=== PATIENT | female | born 2000 | race Caucasian/White ===

== ENCOUNTER 2020-11-23 12:05 | Emergency (ER) | payer BC, MEDICAID, SELFPAY ==
[2020-11-23] VITALS (9 sets, daily range): BP systolic 92–108; BP diastolic 54–76; PULSE 69–104; RESP 17–18; TEMP 36–37; O2SAT 96–99; BMI 18.1
--- NOTE | 2020-11-23 12:49 | ED_ITS ---
HPI - Female Genitourinary General: Chief complaint: Urogenital-Female Stated complaint: lower abd pain and lower back pain 21 wks preg Time Seen by Provider: 11/23/20 12:36 Source: patient Mode of arrival: ambulatory Limitations: no limitations History of Present Illness: HPI Narrative: Right flank pain of 3 days duration. Radiates into the suprapubic region. Associated dysuria and frequency. No hematuria. No fever. She states that she has a history of urinary tract infections and she thinks she has 1 again. She has associated nausea and vomiting and has vomited about 3 times today. She is here to be evaluated for the above. MD elicited complaint: dysuria and UTI Pertinent past history: recurrent UTIs and pyelonephritis Onset (ago): day(s) (3) Severity: moderate Quality of pain: cramping Consistency: constant Vaginal discharge: none Vaginal bleeding: none Urinary symptoms: Dysuria, Flank Pain and Frequency Exacerbating factors: urination Relieving factors: none Associated symptoms: Reports abdominal pain and nausea; Deny short of breath, fevers/chills, headache(s), rash, seizures, syncope, vaginal bleeding, vaginal discharge or weakness Treatment prior to arrival: none Patient : Yes Date of Last Menstrual Period: 06/27/20 Review of Systems General: Reports: 10 or more systems reviewed and unremarkable except in HPI and below Card: Denies: syncope GI: Reports: abdominal pain and nausea : Denies: vaginal discharge Neuro: Denies: headache(s) [facility] ED Female Reproductive History: Date of last menstrual period: 06/27/20 Physical Exam Const: COMMON NORMALS: no acute distress, average body habitus, patient oriented x3, no limitations, healthy appearing, alert and well nourished HENMT: COMMON NORMALS: normocephalic, atraumatic and moist oral mucous membranes HEAD & SCALP: normocephalic and atraumatic Eye: COMMON NORMALS: Equal, round and reactive pupils present, EOMs intact bilaterally, conjunctivae normal and no scleral icterus CONJUNCTIVA: Yes conjunctivae normal PUPIL: Yes Equal, round and reactive pupils present Neck/C-Spine: COMMON NORMALS: no meningeal signs and no JVD Resp: COMMON NORMALS: normal respiratory effort, No retractions, No use of accessory muscles, clear to auscultation bilaterally and percussion normal AUSCULTATION: clear to auscultation bilaterally PERCUSSION: percussion normal Cardio: COMMON NORMALS: no JVD, regular rate, regular rhythm, S1 normal heart sound present, S2 normal heart sound present, No gallops present (Cardio), No clicks present (Cardio), No murmurs present (Cardio), No rub (Cardio) and Peripheral pulses 2+ throughout RATE: regular rate RHYTHM: regular rhythm HEART SOUNDS: S1 normal heart sound present and S2 normal heart sound present PERIPHERAL PULSES: Peripheral pulses 2+ throughout GI: COMMON NORMALS: Normal to inspection, nondistended, normoactive bowel sounds present, Soft to palpation, non-tender, No hepatosplenomegaly present, no masses and no bruits PALPATION: Yes Soft to palpation and Yes No hepatosplenomegaly present : BLADDER/KIDNEY EXAM: Yes CVA tenderness SPECULUM EXAM - VAGINA: No vaginal bleeding OB/EXTERNAL & SPECULUM: No vaginal bleeding Back/Pelvis: GENERAL BACK: Yes CVA tenderness CVA tenderness: right Extremity: COMMON NORMALS: normal to inspection, full ROM, capillary refill normal, no calf tenderness and no pedal edema Neuro: COMMON NORMALS: patient oriented x3 SENSORIUM/ORIENTATION: Yes alert MENINGEAL SIGNS: Yes no meningeal signs Skin: COMMON NORMALS: no rashes or lesions noted, no wounds, turgor normal, no jaundice, no petechiae and no mottling GENERAL SKIN EXAM: no rashes or lesions noted and turgor normal Course ED course: 1550: pain is much improved. She is ready to be discharged home. Discussed her lab and imaging findings with her. No UTI, she has hydronephrosis which is suggestive of urolithiasis on the right. We will discharge her home with a prescription for pain medication. She voiced understanding and is in agreement with the plan. Vital Signs: Vital signs: Vital Signs Temperature 98.6 F 11/23/20 16:09 Pulse Rate 74 11/23/20 16:09 Respiratory Rate 18 11/23/20 16:09 Blood Pressure 97/54 11/23/20 16:09 Pulse Oximetry 96 11/23/20 16:09 MDM - Female MDM Narrative: Medical decision making narrative: 20-year-old female patient who is about 21 weeks and who presents to the emergency department with right flank pain. She does have a history of recurrent UTIs and pyelonephritis states and thinks she may have one. However urinary analysis was negative for UTI. Ultrasound of her renal system shows right hydronephrosis, no left hydronephrosis. She will be managed therefore as a case of a kidney stone with pain medication and she will be referred to the urologist for further evaluation and management. Medical Records: Attestation: I reviewed the patient's medical records. Lab Data: Attestation: I reviewed the patient's lab results. Labs: Lab Results 11/23/20 11/23/20 11/23/20 Range/Units 13:05 13:05 13:05 WBC 7.8 (4.5-13.0) 10^3/ uL RBC 3.48 L (4.1-5.3) 10^6/u L Hgb 10.6 L (11.5-15.3) g/dL Hct 31.0 L (37.0-47.0) % MCV 89.1 (81-99) fL MCH 30.5 (28.0-34.0) pg MCHC 34.2 (30.0-36.0) g/dL RDW 12.4 (12.1-15.1) % Plt Count 233 (130-400) 10^3/c mm MPV 11.1 H (7.4-10.4) fL Neut % (Auto) 75.4 % Lymph % (Auto) 16.1 % Ware % (Auto) 6.1 % Eos % (Auto) 1.4 % Baso % (Auto) 0.6 % Neut # (Auto) 5.85 (1.8-8.0) 10^3/u L Lymph # (Auto) 1.3 L (1.5-6.5) 10^3/u L Ware # (Auto) 0.5 (0.2-0.9) 10^3/u L Eos # (Auto) 0.1 (0.0-0.8) 10^3/u L Baso # (Auto) 0.1 (0.0-0.1) 10^3/u L Nucleated RBC % (a uto) 0 % Nucleated RBCs # 0.0 /100WBC Sodium 137 (136-145) mmol/L Potassium 3.8 (3.5-5.1) mmol/L Chloride 105 (98-107) mmol/L Carbon Dioxide 21 L (22-29) mmol/L Anion Gap 14.8 (5-19) BUN 5 L (6-20) mg/dL Creatinine 0.4 L (0.5-0.9) mg/dL GFR Calculation 203.5 H (90-130) mL/min Glucose 109 (65-115) mg/dL Calculated Osmolal ity 282 L (285-295) mOsm/k g Calcium 8.4 L (8.5-10.5) mg/dL Total Bilirubin 0.2 (0.15-1.2) mg/dL AST 16 (0-32) U/L ALT 6 (0-33) U/L Alkaline Phosphata se 76 (35-105) IU/L C-Reactive Protein 0.3 (0.0-4.9) mg/L Total Protein 6.5 L (6.6-8.7) g/dL Albumin 3.7 (3.5-5.2) g/dL Globulin 2.8 (1.3-4.6) g/dL Urine Color Straw (Yellow) Urine Appearance Clear (CLEAR) Urine pH 5 (5-7) Ur Specific Gravit y 1.010 (1.005-1.030) Urine Protein Neg (Negative) Urine Glucose (UA) 1+ (Normal) Urine Ketones Negative (Negative) Urine Blood Neg (Negative) Urine Nitrate Negative (Negative) Urine Bilirubin Neg (Negative) Urine Urobilinogen Norm (Negative) mg/dL Ur Leukocyte Rose ase Negative (Negative) Imaging Data: US: Attestation: I personally reviewed and interpreted this imaging study as follows: Radiologist's impression: [address] [id number] ReportSigned Patient: Courtney Pedroza #: [id number]: [id number]#:[id number]/Sex: 20 / FADM Date: 11/23/20Loc: ERRoom/Bed:Attending Dr: Ordering Provider/Ordering MD: Hedy Tovar MD, [facility] [place] Date of Service: 11/23/20 Procedure(s): US renal BI* [id number] Accession Number(s): [id number] Report Number: [id number] PROCEDURE INFORMATION: Exam: US Retroperitoneal; Complete; Kidneys and Bladder Exam date and time: 11/23/2020 1:45 PM Age: 20 years old Clinical indication: Abdominal pain; Flank; Right; ; Additional info: Right flank pain TECHNIQUE: Imaging protocol: Real-time ultrasound of the retroperitoneum with image documentation. Complete exam focused on the kidneys and bladder. COMPARISON: US OB >= 14 weeks fetus [id number] 11/11/2020 9:58 AM FINDINGS: Right kidney: [id number] right hydronephrosis. Left kidney: Normal. No stones. No hydronephrosis. Aorta: Proximal abdominal aorta measures 1.5 cm. Mid abdominal aorta measures 1.4 cm. Distal abdominal aorta is not visualized. Urinary bladder: Left-sided urine jets visualized. Right-sided urine jet not visualized on these images. US/US renal BI* [id number] IMPRESSION: [id number] right hydronephrosis. Dictated By:Bailee Scott MDSigned By:Bailee Scott MDSigned Date/Time:11/23/20 1450DD/ 1449 Discharge Plan Discharge Patient Disposition: Home Clinical Impression: Acute right flank pain Hydronephrosis Qualifiers: Hydronephrosis type: unspecified Qualified Code(s): N13.30 - Unspecified hydronephrosis Condition: Stable Prescriptions: New hydrocodone-acetaminophen 5-325 mg tablet 1 tab PO Q8H PRN (Reason: pain) Qty: 12 RF: 0 Discharge Orders: Discharge ED (Routine); Ordered 11/23/20 Ordered By: Hedy Tovar Discharge Diet: Usual diet Discharge Activity: Increase activity as tolerated Patient Instructions: Kidney Stones (ED), Renal Colic (ED), Abdominal Pain (ED), Opioid Safety Activity Restrictions/Additional Instructions: Return for any new or worsening symptoms. Follow-up with your primary care provider within 3 days. You will be contacted by case management to schedule an appointment with urology. Take the pain medicine as needed for severe pain. Drink plenty of water to keep well-hydrated. Coding Level of Care Code ED Sales Trainee for Alessandra Lynch
--- NOTE | 2020-11-23 13:08 | PC.NURSE ---
Here for right sided flank pain.
[2020-11-23] MEDS: ondansetron 2 mg/ML SDV 2 mL 4 MG IVP (13:10)
[2020-11-23] MEDS: morphine 4 mg/mL SDV 1 mL IVP (13:10)
[2020-11-23 13:17] LABS: Add Urine Microscopic? NO; Charge for UA Resulting for Rev
[2020-11-23 13:18] LABS: Basophils # 0.1 10^3/uL (0.0-0.1); Basophils % 0.6 %; Eosinophils # 0.1 10^3/uL (0.0-0.8); Eosinophils % 1.4 %; Hemoglobin 10.6 g/dL (11.5-15.3); Lymphocytes # 1.3 10^3/uL (1.5-6.5); Lymphocytes % 16.1 %; Mean Corpuscular HGB Conc 34.2 g/dL (30.0-36.0); Mean Corpuscular Hemoglobin 30.5 pg (28.0-34.0); Mean Corpuscular Volume 89.1 fL (81-99); Mean Platelet Volume 11.1 fL (7.4-10.4); Monocytes # 0.5 10^3/uL (0.2-0.9); Monocytes % 6.1 %; Neutrophils # 5.85 10^3/uL (1.8-8.0); Neutrophils % 75.4 %; Nucleated Red Blood Cells % 0 %; Platelet Count 233 10^3/cmm (130-400); Red Blood Count 3.48 10^6/uL (4.1-5.3); Red Cell Distribution Width 12.4 % (12.1-15.1); White Blood Count 7.8 10^3/uL (4.5-13.0)
[2020-11-23 13:32] LABS: Bilirubin Urine Neg (Negative); Blood Urine Neg (Negative); Glucose Urine UA 1+ (Normal); Ketones Urine Negative (Negative); Leukocyte Esterase Urine Negative (Negative); Nitrate Urine Negative (Negative); Protein Urine Neg (Negative); Urine Appearance Clear (CLEAR); Urine Color Straw (Yellow); Urobilinogen Urine Norm (Negative); pH Urine 5 (5-7)
[2020-11-23 13:42] LABS: Alanine Aminotransferase 6 U/L (0-33); Albumin Level 3.7 g/dL (3.5-5.2); Alkaline Phosphatase 76 IU/L (35-105); Anion Gap 14.8 (5-19); Aspartate Amino Transferase 16 U/L (0-32); Blood Urea Nitrogen 5 mg/dL (6-20); C Reactive Protein 0.3 mg/L (0.0-4.9); Calcium 8.4 mg/dL (8.5-10.5); Carbon Dioxide 21 mmol/L (22-29); Chloride 105 mmol/L (98-107); Globulin 2.8 g/dL (1.3-4.6); Glomerular Filtration Rate 203.5 mL/min (90-130); Glucose 109 mg/dL (65-115); Osmolality Calculated 282 mOsm/kg (285-295); Potassium 3.8 mmol/L (3.5-5.1); Sodium 137 mmol/L (136-145); Total Bilirubin 0.2 mg/dL (0.15-1.2); Total Protein 6.5 g/dL (6.6-8.7)
--- NOTE | 2020-11-23 13:45 | USR_ITS ---
PROCEDURE INFORMATION: Exam: US Retroperitoneal; Complete; Kidneys and Bladder Exam date and time: 11/23/2020 1:45 PM Age: 20 years old Clinical indication: Abdominal pain; Flank; Right; ; Additional info: Right flank pain TECHNIQUE: Imaging protocol: Real-time ultrasound of the retroperitoneum with image documentation. Complete exam focused on the kidneys and bladder. COMPARISON: US OB >= 14 weeks fetus [id number] 11/11/2020 9:58 AM FINDINGS: Right kidney: [id number] right hydronephrosis. Left kidney: Normal. No stones. No hydronephrosis. Aorta: Proximal abdominal aorta measures 1.5 cm. Mid abdominal aorta measures 1.4 cm. Distal abdominal aorta is not visualized. Urinary bladder: Left-sided urine jets visualized. Right-sided urine jet not visualized on these images. US/US renal BI* [id number] IMPRESSION: [id number] right hydronephrosis.
[2020-11-23] MEDS: HYDROmorphone 1 mg/mL INJ 1 mL 0.5 MG IVP (15:22)
--- NOTE | 2020-11-25 08:17 | DCPLANNER ---
retail advertising sales manager had message to schedule a follow up appointment for patient with Dr. Mohan. retail advertising sales manager called the office of Dr. Mohan, spoke with Melanie. retail advertising sales manager gave clinic patients information. retail advertising sales manager was told that patients information would be printed and reviewed. Clinic will call patient with appointment information.
--- NOTE | 2020-12-13 07:19 | DCPLANNER ---
Patient had a follow up appointment scheduled for 12.05.[address] Mohan - patient did not attend appointment.
== END 2020-11-23 16:12 | disposition home or self-care (01) ==
PROVIDERS: Emergency Provider Family Medicine
DX: O99.891 Other specified diseases and conditions complicating pregnancy (principal); N13.30 Unspecified hydronephrosis; Z3A.21 21 weeks gestation of pregnancy
CPT/HCPCS: 76770; 80053; 81003; 85025; 86140; 96374; 96375; 99284; J1170; J2270; J2405

== ENCOUNTER 2021-04-06 03:10 | Inpatient (IN) | payer BC, MEDICAID, SELFPAY ==
[2021-04-06] VITALS (60 sets, daily range): BP systolic 107–168; BP diastolic 60–87; PULSE 53–140; RESP 16; TEMP 36.1–36.9; O2SAT 98–99; BMI 20.5
[2021-04-06] MEDS: lactated ringers 1,000 ML 999 ML IV (03:15)
[2021-04-06 03:20] LABS: Basophils % 0.4 %; Eosinophils # 0.1 10^3/uL (0.0-0.8); Eosinophils % 1.1 %; Hemoglobin 9.4 g/dL (11.5-15.3); Lymphocytes % 17.9 %; Mean Corpuscular HGB Conc 32.4 g/dL (30.0-36.0); Mean Corpuscular Hemoglobin 26.7 pg (28.0-34.0); Mean Corpuscular Volume 82.4 fl (81-99); Mean Platelet Volume 12.2 fL (7.4-10.4); Monocytes # 0.9 10^3/uL (0.2-0.9); Monocytes % 8.2 %; Neutrophils # 8.07 10^3/uL (1.8-8.0); Nucleated Red Blood Cells % 0 %; Platelet Count 194 10^3/cmm (130-400); Red Blood Count 3.52 10^6/uL (4.1-5.3); Red Cell Distribution Width 12.2 % (12.1-15.1); White Blood Count 11.2 10^3/uL (4.5-13.0)
--- NOTE | 2021-04-06 03:50 | ANES.PREANE2 ---
Pre-Anesthetic Assessment Pre-Anesthetic Assessment: Height/Weight: Height 1.68 m Weight 57.606 kg Pulse BP Pulse Ox 92 123/77 99 04/06/21 04:17 04/06/21 04:17 04/06/21 04:15 Preop Diagnosis: IUP Proposed Procedure: PASTORA Was Beta Radha taken within 24 hours: N/A Was Clonidine taken within 24 hours: N/A Social: Social History: No alcohol and No tobacco Exam: Pre-Anes Outpt Exam: alert, oriented x 3 and regular rate & rhythm Airway: Submandibular: WNL Cervical ROM: WNL MP: 2 Dentition: False History/ROS: No significant history except as noted Pulmonary: Pulmonary: None reported CV/HEM: CV/HEM: None reported : : None reported Hepatic: Hepatic: None reported GI: GI: None reported Metabolic: Metabolic: None reported Musc/skel: Musc/skel: None reported Neuropsych: Neuropsych: None reported Anesthetic Plan: ASA status: 2 Anesthesia: Anesthesia Evaluation and Regional (specify below) (epidural) Risk of > 500 ml blood loss (7ml/kg in children): No Meds/Allergies Current Medications: Current Medications Generic Name Dose Route Start Last Admin Trade Name Freq PRN Reason Stop Dose Admin Ropivacaine 200 mg in 100 mls @ 13 mls/hr 04/06/21 03:00 04/06/21 04:19 Naropin Premix EPIDURAL 13 mls/hr .Q7H42M PRN Administration ANESTHESIA Lactated Ringer's 1,000 mls @ 999 m ls/hr 04/06/21 03:00 04/06/21 03:15 Lactated Ringers IV 999 mls/hr .Q1H1M PRN Administration See label comment s PFSH Anesthesia Female Reproductive History: Date of last menstrual period: 06/27/20 : 1 Data Anesthesia CBC & Chem 7: 04/06/21 03:14 Other Labs: Laboratory Results - last 48 hr 04/06/21 03:14 WBC 11.2 RBC 3.52 L Hgb 9.4 L Hct 29.0 L MCV 82.4 MCH 26.7 L MCHC 32.4 RDW 12.2 Plt Count 194 MPV 12.2 H Neut % (Auto) 72.0 Lymph % (Auto) 17.9 [place] % (Auto) 8.2 Eos % (Auto) 1.1 Baso % (Auto) 0.4 Neut # (Auto) 8.07 H Lymph # (Auto) 2.0 [place] # (Auto) 0.9 Eos # (Auto) 0.1 Baso # (Auto) 0.0 Nucleated RBC % (auto) 0 Nucleated RBCs # 0.0 Cardiac Studies: No Data to Display
[2021-04-06] MEDS: dextrose 5%-lactated ringers 1,000 ML 125 ML IV (04:17)
--- NOTE | 2021-04-06 04:23 | ANES.PROC ---
Anesthesia Procedures Procedure/Date: 04/06/21 Epidural: Time Out Performed: Yes Consents Signed: Procedure Consent and No Consent Needed Consent: from patient, risks and benefits reviewed and patient agrees to proceed Lumbar Level: L4-L5 Epidural position: sitting Epidural procedure: sterile prep of area, 1% lidocaine to numb the area, 18 g needle, neg for paresthesia, test dose given, 1.5% xylocaine 1:200k epi, placed PCEA, no systemic response, sterile dressing applied, L.U.D. no apparent complications and 0.2% Ropiavacaine @ mls/hr (13) Additional Comments: SAMANTHA at 5 taped at 11 at skin
[2021-04-06] MEDS: ondansetron 2 mg/ML SDV 2 mL 4 MG IVP (04:57)
--- NOTE | 2021-04-06 07:50 | PM.OPHPUD ---
Labor & Delivery H&P Update Date of Procedure: April 06, 2021 Date H&P Performed: 03/31/21 H&P update information: I have reviewed H&P completed within last 30 days, I have examined patient prior to procedure and Changes to prior documentation as noted here (Patient cervix is now 8 cm and 80% effaced.) Admission Diagnosis: 20-year-old 1 at 40 weeks EGA in active labor Preop diagnosis: IUP Planned procedure: Spontaneous vaginal delivery Other information: The patient has had an unremarkable with exception of being trichomonas positive She was treated with metronidazole. Otherwise the remainder of her labs including hepatitis B, hepatitis C, HIV, chlamydia, gonorrhea, RPR, drug screen, glucose screen, group B strep have all been negative.
[2021-04-06] MEDS: oxytocin 30 UNIT/500 ML BAG 600 UNIT IV (08:20)
[2021-04-06] MEDS: lidocaine 2% INJ 20 mL INJECTION (08:27)
--- NOTE | 2021-04-06 08:47 | PM.DELIVERY ---
Delivery Note: Date of delivery: April 06, 2021 Op report anesthesia: Epidural Delivering Physician: Pete Johnson Estimated blood loss (mL): 250 Pre-Delivery Course: The patient presented to the hospital in active labor. An epidural was placed. An amniotomy was performed. She progressed to complete. She then pushed for over 2 hours and made some progress but the patient was wearing out. Her pushes were becoming less forceful, and she was emotionally overwhelmed. In the meanwhile, the baby's heart tones were staying in the 70s and 80s for longer periods of time with each push. Delivery: DELIVERY: I applied a soft cup Kiwi vacuum in the usual fashion. 1 pop off occurred. The cup was carefully applied to the 's head. Suction was applied during 2 contractions. She delivered a male with a weight of 7 pounds 9 ounces with Apgars of 9, 9. The baby was delivered from the BERNARD position and placed on the mother's abdomen. The cord was then clamped and cut after about a minute. There was no nuchal cord. There was no meconium. The placenta and 3 vessel cord were delivered intact shortly thereafter. The perineum and vaginal vault were carefully examined. A third degree posterior midline tear was noted. 7 cc of 2% lidocaine was used to anesthetize the area prior to the repair. The sphincter was carefully reapproximated by placing simple stitch in all 4 sides. The remainder of the repair was done in usual fashion. I took extra care to make sure there was no laceration into the rectum and also felt for any stitches that may have been inadvertently placed in the rectum, and there were none. Both the mother and the baby were in stable condition. Post-Delivery Status: Good A&P Assessment and plan (1) 40 weeks gestation of : Status: Acute (2) Vacuum-assisted vaginal delivery: Status: Acute Coding Level of Care Code Acute Route Delivery Clerk for Chg Fwd Diagnoses 40 weeks gestation of Z3A.40 Vacuum-assisted vaginal delivery Z37.9
--- NOTE | 2021-04-06 09:50 | ANE.PACU2 ---
Inpatient post-anesthesia follow up: Airway intact: Yes Vital signs: Temperature 97.0 F Pulse Rate 64 Respiratory Rate Blood Pressure 125/77 Pulse Oximetry 99 Oxygen Delivery Me thod Room Air Oxygen Flow Rate Fraction of Inspir ed Oxygen Hydration adequate: Yes Nausea and vomiting: No Pain level: 2 Mental status: Baseline Additional Comments: During epidural placement there was inadvertent wet tap . Patient has no h/a symptoms at the moment, sitting upright in bed. Discussed PDPH and blood patch.
[2021-04-06] MEDS: benzocaine-menthol 78 gm Canister 1 SPRAY TOPICAL (10:35)
[2021-04-06] MEDS: lanolin oint 7 gm 1 APPLIC TOPICAL (10:35)
[2021-04-06] MEDS: ibuprofen 800 mg tablet PO ×3 (10:36→20:13)
[2021-04-06] MEDS: prenatal vitamin Capsule 1 CAP PO (10:36)
[2021-04-06] MEDS: docusate sodium 100 mg Capsule 200 MG PO ×2 (10:37→17:29)
[2021-04-06] MEDS: HYDROcodone-acetaminophen 5-325 mg Tablet PO ×2 (13:35→23:10)
[2021-04-06 17:40] LABS: Hemoglobin 7.7 g/dL (11.5-15.3); Mean Corpuscular HGB Conc 32.1 g/dL (30.0-36.0); Mean Corpuscular Hemoglobin 26.8 pg (28.0-34.0); Mean Corpuscular Volume 83.6 fl (81-99); Platelet Count 167 10^3/cmm (130-400); Red Blood Count 2.87 10^6/uL (4.1-5.3); Red Cell Distribution Width 12.3 % (12.1-15.1); White Blood Count 11.9 10^3/uL (4.5-13.0)
[2021-04-07 04:30] VITALS: BP 112/69; PULSE 59; RESP 16; TEMP 36.8
[2021-04-07 05:10] LABS: Hemoglobin 7.5 g/dL (11.5-15.3); Mean Corpuscular HGB Conc 32.6 g/dL (30.0-36.0); Mean Corpuscular Hemoglobin 27.2 pg (28.0-34.0); Mean Corpuscular Volume 83.3 fl (81-99); Mean Platelet Volume 12.3 fL (7.4-10.4); Platelet Count 156 10^3/cmm (130-400); Red Blood Count 2.76 10^6/uL (4.1-5.3); Red Cell Distribution Width 12.5 % (12.1-15.1); White Blood Count 9.9 10^3/uL (4.5-13.0)
--- NOTE | 2021-04-07 08:11 | PM.OBGYDC ---
Discharge Providers RESTAURANT FLOOR MANAGER Date of Admission: 04/06/21 03:10 Date of Discharge: 04/11/21 Attending Provider at Admission: Pete Johnson MD Attending Provider at Discharge: Pete Johnson MD Primary Care Provider: Ximena Mccullough MD Diagnoses at Discharge Discharge Diagnosis (1) 40 weeks gestation of : Status: Resolved (2) Vacuum-assisted vaginal delivery: Status: Resolved Reason for Visit Reason for Visit: ABD Pain, bleeding Hospital Course Hospital Course The patient presented to the hospital in active labor. She progressed to complete without difficulty. She pushed for over 2 hours and was never making good progress. As result the vacuum was applied. The baby was delivered easily. The patient did have a third-degree tear. Her course was unremarkable as well. Her bleeding was within normal limits. She breast-fed. Her pain was well controlled. There were no concerns. Information Peripartum Data: Delivery Method: Vaginal Physical Exam Narrative: EXAM NARRATIVE: The patient is alert. She appears comfortable. Her heart has a regular rate and rhythm with no murmurs appreciated. Lungs are clear to auscultation bilaterally. Her fundus is firm and below the umbilicus. Urinary Catheter Management^: Oakley: Cath Placed During This Visit: yes, but has since been removed by the nurse Reason for Continuing Indwelling Catheter: Decision to DC Catheter Urinary Catheter Date of Insertion: 04/06/21 Urinary Catheter Time of Insertion: 05:15 Date Urinary Catheter Removed: 04/06/21 Time Urinary Catheter Discontinued: 05:58 Discharge Data Data Completed and Pending: Labs from last 24 hours 04/07/21 04/06/21 05:00 17:30 WBC 9.9 11.9 RBC 2.76 L 2.87 L Hgb 7.5 L 7.7 L Hct 23.0 L 24.0 L MCV 83.3 83.6 MCH 27.2 L 26.8 L MCHC 32.6 32.1 RDW 12.5 12.3 Plt Count 156 167 MPV 12.3 H 12.0 H Vitals: Last Vital Signs Temp 98.3 F 04/07/21 04:30 Pulse 59 L 04/07/21 04:30 Resp 16 04/07/21 04:30 BP 112/69 04/07/21 04:30 Pulse Ox 99 04/06/21 17:39 Discharge Plan Discharge Patient Disposition: Home Condition: Stable Prescriptions: New ibuprofen 800 mg Tablet 800 mg PO TID Qty: 45 RF: 0 iron 325 mg (65 mg iron) tablet 325 mg PO DAILY Qty: 30 RF: 0 docusate sodium 100 mg Capsule 200 mg PO BID Qty: 30 RF: 0 Continued hydrocodone-acetaminophen 5-325 mg tablet 1 tab PO Q8H PRN (Reason: pain) Qty: 12 RF: 0 Discharge Orders: Discharge Order (Routine); Ordered 04/07/21 Ordered By: Pete Johnson Referrals: Pete Johnson MD [Physician] - 6 Weeks (Please call Yovany Jay to schedule your 6 week post- appointment. ) Discharge Diet: Usual diet Discharge Activity: Limit activity as instructed Patient Instructions: Depression (DC), Expression, Collection and Storage of Breast Milk (DC), Bleeding (DC), Preeclampsia and Eclampsia After Delivery (GEN), OB Discharge Report, OB Food/Drug Interaction Guide, Opioid Safety, OB Home Care, OB Vaginal Deliveries Discharge Attestations RESTAURANT FLOOR MANAGER Time Spent in Discharge Care*: less than 30 min Coding Level of Care Code Acute Lead Quality Technician for Chg Fwd Diagnoses 40 weeks gestation of Z3A.40 Vacuum-assisted vaginal delivery Z37.9
[2021-04-07] MEDS: ibuprofen 800 mg tablet PO (09:35)
[2021-04-07] MEDS: prenatal vitamin Capsule 1 CAP PO (09:35)
[2021-04-07] MEDS: docusate sodium 100 mg Capsule 200 MG PO (09:35)
[2021-04-07 13:00] VITALS: BP 123/76; PULSE 67; RESP 18; TEMP 36.4; O2SAT 98
== END 2021-04-07 12:25 | disposition home or self-care (01) | DRG 768 ==
LOC: OPOB 03:10 → OBGYN 03:10
PROVIDERS: Admitting Provider Family Medicine; PCP Family Medicine; Visit Provider Family Medicine
DX: O75.81 Maternal exhaustion complicating labor and delivery (principal); Z37.0 Single live birth; O99.344 Other mental disorders complicating childbirth; F41.9 Anxiety disorder, unspecified; O44.43 Low lying placenta NOS or without hemorrhage, third trimester; O70.20 Third degree perineal laceration during delivery, unspecified; O75.89 Other specified complications of labor and delivery; A59.9 Trichomoniasis, unspecified; Z3A.40 40 weeks gestation of pregnancy
CPT/HCPCS: 12345; 36415; 51702; 59025; 59409; 85025; 85027; 99211; J2405; J2795; J3010